=== PATIENT | female | born 2000 | race Caucasian/White ===

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

== ENCOUNTER 2020-05-19 17:38 | Emergency (ER) | payer OTHER ==
[~2020-05-19] VITALS: Ht 162.6 cm; Wt 142.0 kg
[2020-05-19 17:43] VITALS: Ht 162.6 cm; Wt 142.0 kg
[2020-05-19] MEDS ORDERED: AUGMENTIN 875-1 EACH PO ×2 (20:03→20:26)
[2020-05-19] MEDS ORDERED: MOT800 PO (20:03)
[2020-05-19] MEDS ORDERED: NOR10T PO (20:03)
[2020-05-19 20:36] VITALS: BP 113/66
== END 2020-05-19 20:36 | disposition home or self-care (01) ==
LOC: ED 17:38
DX: J32.3 Chronic sphenoidal sinusitis (principal); R51.9 Headache, unspecified; Z90.49 Acquired absence of other specified parts of digestive tract
CPT/HCPCS: J0696; J1885; J2765